=== PATIENT | female | born 1970 | race Caucasian/White ===

== ENCOUNTER → 2020-07-14 | Outpatient (CLI) | payer OTHER ==
[~2020-07-14] MED LIST: BENTYL 10MG CAP10 MG PO; ZOFRAN 4 MG TAB4 MG PO
== END ==
LOC: MAMO 11:00
DX: Z12.31 Encounter for screening mammogram for malignant neoplasm of breast (principal)
CPT/HCPCS: 77063; 77067

== ENCOUNTER → 2021-07-18 | Outpatient (CLI) | payer OTHER | LOC: MAMO 10:00 | DX: Z12.31 Encounter for screening mammogram for malignant neoplasm of breast (principal) | CPT/HCPCS: 77063; 77067 ==

== ENCOUNTER → 2021-12-14 | Outpatient (CLI) | payer OTHER | LOC: EXRD 13:21 → HEART 5 14:00 | DX: R22.32 Localized swelling, mass and lump, left upper limb (principal); R00.2 Palpitations | CPT/HCPCS: 76882 ==